=== PATIENT | female | born 1960 | race Caucasian/White ===

== ENCOUNTER 2017-06-02 08:03 | Day surgery (SDC) | payer OTHER ==
[~2017-06-02 08:03] MED LIST: Buffered Lidocaine 0.9% SYRIN* 5 ML/SYR SYRINGE INTRADERM ONE; Dexamethasone IV* 4 MG/ML 1 ML (4 MG) IV SLOW PU ONE; Famotidine IV* 10 MG/ML 2 ML (20 mg) IV ONE
[2017-06-02] MEDS ORDERED: Dexamethasone IV* 4 MG/ML 1 ML (4 MG) ONE (08:24)
[2017-06-02] MEDS ORDERED: Buffered Lidocaine 0.9% SYRIN* 5 ML/SYR SYRINGE ONE (08:25)
[2017-06-02] MEDS ORDERED: Famotidine IV* 10 MG/ML 2 ML (20 mg) ONE (08:25)
[2017-06-02] MEDS ORDERED: Midazolam* 1 MG/ML 2 ML VIAL (2 MG) ONE (09:25)
[2017-06-02] MEDS ORDERED: Bupivacaine 0.25% SDV* 30 ML ONE (09:26)
[2017-06-02] MEDS ORDERED: fentaNYL* 50 MCG/ML 2 ML VIAL (100 MCG VIAL) IV PRN (09:36)
[2017-06-02] MEDS ORDERED: Ondansetron INJ* 2 MG/ML VIAL IV PRN (09:36)
[2017-06-02] MEDS ORDERED: HYDROcodone/ACETAMIN 5-325 MG* 1 TAB PO PRN (09:36)
[2017-06-02] MEDS ORDERED: Ketorolac INJ* 30 MG/ML 1 ML VIAL IV PRN (09:36)
[2017-06-02] MEDS ORDERED: oxyCODONE/Acetamin 5/325 MG* TAB PO PRN (09:36)
[2017-06-02] MEDS ORDERED: Lidocaine 2% PF * 5 ML VIAL ONE (09:42)
[2017-06-02] MEDS ORDERED: Propofol* 10 MG/ML 20 ML BTL IV PUSH ONE (09:42)
[2017-06-02 10:50] VITALS: BP 132/86
--- NOTE | 2017-06-02 14:10 | OP ---
DATE OF OPERATION: 06/02/17 [facility] DATE OF : 56 SURGEON: Honorio Andrade MD [employer] OPERATOR: MAGNOLIA Vera ANESTHESIOLOGIST: Dr. Luis Alberto Bob. ANESTHESIA: Local MAC. PRE-OP DIAGNOSIS: Right carpal tunnel syndrome. POST-OP DIAGNOSIS: Right carpal tunnel syndrome. OPERATIVE PROCEDURE: Right open carpal tunnel release. INDICATIONS: Taisha is a 57-year-old female with severe right carpal tunnel syndrome. We had talked about risks and benefits. She wanted to proceed with surgery. ESTIMATED BLOOD LOSS: 2 mL. COMPLICATIONS: None. FINDINGS: As expected. DESCRIPTION OF PROCEDURE: Taisha was seen in the preoperative holding area. The correct site, side, and procedure were identified. We came back to the operating room where she got some anesthesia and I infiltrated the operative area with 0.25% plain Marcaine. The arm was prepped and draped in the usual fashion and formal time-out was performed. I exsanguinated the arm with the Esmarch and the tourniquet was inflated to 250 mmHg. I then made a longitudinal 2- to 3-cm incision in the standard location for an open carpal tunnel release. Dissection was carried out down through the skin, subcutaneous tissue, and palmar fascia to expose the transverse carpal ligament. Transverse carpal ligament was released just off the radial aspect the hook of the hamate. Once I completed the release distally, I turned my attention proximally and released the subcutaneous tissue and this was retracted volarly and ulnarly with a Adama retractor. With the Adama retractor in place, I then used tenotomy scissors to release the remainder of the transverse carpal ligament and the distal antebrachial fascia to the level several centimeters proximal to the wrist flexion crease. Once I was satisfied with the release distally and proximally, there was no more compression on the nerve. I went ahead and irrigated out the wound. Skin was closed with 4-0 nylon suture. Wound was dressed with Xeroform, 4x4s, sterile Webril, and an Ba bandage. The tourniquet was deflated and the fingers pinked up immediately. She was then taken to the recovery room in stable condition. [id number]/[facility] #: [id number] [facility]
== END 2017-06-02 10:58 | disposition home or self-care (01) ==
LOC: OREAST 08:03
PROVIDERS: ATTEND Orthopaedic Surgery Hand Surgery
DX: G56.01 Carpal tunnel syndrome, right upper limb (principal)
CPT/HCPCS: J1100; J2250; J2704